=== PATIENT | male | born 1960 | race Caucasian/White ===

== ENCOUNTER 2016-08-15 02:20 | Emergency (ER) | payer BC ==
[~2016-08-15] VITALS: Ht 182.9 cm; Wt 127.0 kg
[2016-08-15 02:35] VITALS: BP 164/80
--- NOTE | 2016-08-15 02:52 | PHYS DOC ---
Adult General Chief Complaint Chief Complaint: ALCOHOL INTOXICATION HPI HPI Patient is a 56 year old male who presents with complaint of alcohol intoxication. Patient was brought to the emergency department by EMS after bystanders noted that the patient had "passed out" and had been vomiting. Patient states that he drank vodka, cinnamon whiskey, and beer. Patient states that he knows where he is at this time and states "I just drank too much." Patient is requesting that we contact his as the patient states that he would like to go home. Patient does not feel that he needs to stay in the emergency department. Patient is denying any other symptoms at this time. Review of Systems Review of Systems Constitutional: Denies fever or chills [] Eyes: Denies change in visual acuity, redness, or eye pain [] HENT: Denies nasal congestion or sore throat [] Respiratory: Denies cough or shortness of breath [] Cardiovascular: Denies chest pain or edema [] GI: Vomiting, denies abdominal pain, bloody stools or diarrhea [] : Denies dysuria or hematuria [] Musculoskeletal: Denies back pain or joint pain [] Integument: Denies rash or skin lesions [] Neurologic: Denies headache, focal weakness or sensory changes [] Allergies Allergies Allergies Coded Allergies Type Severity Reaction Last Updated Verified Penicillins Allergy Intermediate 08/15/16 Yes Physical Exam Physical Exam Constitutional: Alert, obese, slurring of speech, covered in dried mud, alcoholic halitosis present. [] HENT: Normocephalic, atraumatic, bilateral external ears normal, oropharynx moist, no oral exudates, nose normal. [] Eyes: PERRLA, EOMI, conjunctiva normal, no discharge. [] Neck: Normal range of motion, no tenderness, supple, no stridor. [] Cardiovascular:Heart rate regular rhythm, no murmur [] Lungs & Thorax: Bilateral breath sounds clear to auscultation [] Abdomen: Bowel sounds normal, soft, no tenderness, no masses, no pulsatile masses. [] Skin: Warm, dry, no erythema, no rash. [] Back: No tenderness, no CVA tenderness. [] Extremities: No tenderness, no cyanosis, no clubbing, ROM intact, no edema. [] Neurologic: Alert and oriented X 3, slurring of speech, normal motor function, normal sensory function, no focal deficits noted. [] Current Patient Data Vital Signs Vital Signs Date Time Temp Pulse Resp B/P Pulse Ox O2 Delivery O2 Flow Rate FiO2 08/15/16 02:35 97.9 100 18 164/80 100 Room Air 97.9 EKG EKG Not performed [] Radiology/Procedures Radiology/Procedures Not performed [] Course & Med Decision Making Course & Med Decision Making Pertinent Labs and Imaging studies reviewed. (See chart for details) Patient was assisted to the bathroom in the emergency department and was able to ambulate with assistance. The patient provided contact information for his , Sadaf Hightower, who came to the emergency department. The patient was discharged home in the care of his . Advised follow-up as needed with patient's primary doctor and return to emergency department for any worsening symptoms. Patient discharged in stable condition. Dragon Disclaimer Dragon Disclaimer This electronic medical record was generated, in whole or in part, using a voice recognition dictation system. Departure Departure Impression: Primary Impression: Alcohol intoxication Disposition: 01 HOME, SELF-CARE Condition: STABLE Referrals: NO PCP (PCP) Patient Instructions: Alcohol Intoxication Additional Instructions: Follow-up with your primary doctor as needed. Return to emergency department for any worsening symptoms. Problem Qualifiers Primary Impression: Alcohol intoxication Complication of substance-induced condition: uncomplicated Qualified Code: F10.120 - Alcohol abuse with intoxication, uncomplicated JOYCE MANCERA MD Aug 15, 2016 02:52
== END 2016-08-15 03:05 | disposition home or self-care (01) ==
LOC: ER 02:20
DX: F10.120 Alcohol abuse with intoxication, uncomplicated (principal); E66.9 Obesity, unspecified; Z88.0 Allergy status to penicillin; Z68.38 Body mass index [BMI] 38.0-38.9, adult
CPT/HCPCS: 99284